=== PATIENT | female | born 1955 | race Caucasian/White ===

== ENCOUNTER → 2023-08-31 14:26 | Outpatient (REF) | payer MEDICARE, OTHER, SELFPAY | LOC: DHCBC MAIN 14:26 | PROVIDERS: ATTENDING PHYSICIAN Nurse Practitioner; FAMILY PHYSICIAN Nurse Practitioner Family | DX: I48.0 Paroxysmal atrial fibrillation (principal); R79.89 Other specified abnormal findings of blood chemistry; I95.89 Other hypotension; I10 Essential (primary) hypertension | CPT/HCPCS: 93306 ==

== ENCOUNTER → 2023-10-05 13:15 | Outpatient (REF) | payer MEDICARE, OTHER, SELFPAY | LOC: WDC 13:15 | PROVIDERS: ATTENDING PHYSICIAN Nurse Practitioner Family | DX: N64.4 Mastodynia (principal) | CPT/HCPCS: 76642; 77062; 77066 ==

== ENCOUNTER → 2023-11-28 08:04 | Outpatient (REF) | payer MEDICARE, OTHER, SELFPAY | LOC: RCS 08:04 | PROVIDERS: ATTENDING PHYSICIAN Nurse Practitioner; FAMILY PHYSICIAN Family Medicine | DX: I48.0 Paroxysmal atrial fibrillation (principal) | CPT/HCPCS: 93225; 93226 ==

== ENCOUNTER 2023-12-29 05:53 | Day surgery (SDC) | payer MEDICARE, OTHER, SELFPAY ==
[2023-12-07 10:55] LABS: % Basophils 0.6 % (0-2); % Eosinophils 4.1 % (0-6); % Immature Granulocytes 0.3 % (0-0.5); % Lymphocytes 30.6 % (20.5-51.1); % Neutrophils 58.4 % (42.2-75.2); Absolute Eosinophils 0.3 10^3/uL (0-0.7); Absolute Lymphocytes 2.2 10^3/uL (1.2-3.4); Absolute Monocytes 0.4 10^3/uL (0.1-0.6); Absolute Neutrophils 4.2 10^3/uL (1.4-6.5); Hematocrit 29.8 % (37.0-47.0); Hemoglobin 9.8 g/dL (12.0-16.0); Mean Corp Hgb Conc. 32.9 g/dL (33.0-37.0); Mean Corpuscular Hgb 29.3 pg (27.0-31.0); Mean Corpuscular Volume 89.2 fL (81.0-99.0); Mean Platelet Volume 11.3 fL (7.4-10.4); Nucleated Red Blood Cells % 0 %; Platelet Count 207 10^3/uL (130-400); Red Blood Cell Count 3.34 10^6/uL (4.20-5.40); White Blood Cell Count 7.1 10^3/uL (4.8-10.8)
[2023-12-07 11:51] LABS: ALT (SGPT) < 10 U/L (0-35); AST (SGOT) 19 U/L (14-36); Albumin 3.9 g/dl (3.5-5.0); Alkaline Phosphatase 88 U/L (38-126); Blood Urea Nitrogen 29 mg/dl (7-17); Calcium 9.8 mg/dl (8.4-10.2); Carbon Dioxide 21 mmol/L (22-30); Chloride 107 mmol/L (98-107); Glucose 98 mg/dl (70-99); Potassium 4.6 mmol/L (3.5-5.1); Sodium 139 mmol/L (135-145); Total Bilirubin 0.5 mg/dl (0.2-1.3); Total Protein 6.7 g/dl (6.3-8.2); eGFR 26.88
[2023-12-07 12:33] VITALS: BMI 34.8
[2023-12-29] VITALS (10 sets, daily range): BP systolic 130–155; BP diastolic 86–98; BMI 34.4
[2023-12-29 06:41] LABS: Glucose - Point of Care 96 mg/dl (70-99)
[2023-12-29 09:11] LABS: ACT-LR - POC 314 Seconds (116-155)
--- NOTE | 2023-12-29 09:45 | ITS.CL.ABL ---
Professor Of English - Ablation
Ablation
Procedure Report:
AFIB ablation:
Ms. Suráez is a very pleasant 68 yr old gentleman with medical history significant for symptomatic paroxysmal atrial fibrillation who is here in the EP lab for atrial fibrillation ablation
Date of Procedure:
12/29/2023
Indications:
Symptomatic atrial fibrillation
Pre-Operative Diagnosis:
Paroxysmal Atrial fibrillation
Post-Operative Diagnosis:
Paroxysmal Atrial fibrillation
Procedure Performed:
Atrial fibrillation ablation with wide area circumferential ablation (WACA) approach for pulmonary vein isolation
Performing Physician:
Valeriano Jasmine MD
Assistants:
EP staff
Anesthesia:
See anesthesia records
Detailed Description of the Procedure:
Written informed consent was obtained from the patient after a full explanation of the risks and benefits of the procedure including the risks of sedation and anesthesia.
The patient was brought to the electrophysiology laboratory in stable condition in fasting state. Continuous electrocardiographic and hemodynamic monitoring was initiated.
The initial rhythm was normal sinus rhythm.
The procedure site was meticulously prepared with surgical scrub and allowed to dry with no pooling. Sterile draping was applied to cover the procedure site. The image intensifier was draped with sterile bag and positioned over the patient. After
infusion of local anesthetic, vascular access was obtained under ultrasound guidance and sheaths were placed over guide wire as detailed below.
Sheath and Catheter Placement:
In the right femoral vein, an 8-Peruvian sheath was placed for use during the ablation procedure. A second 9-Fr sheath was placed for use during intracardiac echo procedure.
The sheaths were upgraded as needed during the case. Intracardiac catheters were positioned using direct fluoroscopic guidance.� ICE catheter was placed in RA. The following catheters / sheaths were placed
Sheaths:
��������������� Agilis sheath in right femoral vein upgraded from 8Fr in right femoral vein
��������������� 9Fr in right femoral vein
Catheters:
������������� [employer] Power Thermacool STSF bidirectional (D/F) - at locations of HRA, RV, LA and LV.
������������� Pentaray catheter � at locations of RA and LA
������������� ICE catheter - at locations of RA, SVC, and RV.
Intracardiac ECHO:
An 8-Peruvian AcuNav intracardiac ECHO (ICE) probe was advanced through the 9-Peruvian sheath in the femoral vein into the right atrium under fluoroscopic and ICE ultrasound image guidance and a baseline ECHO study was performed. The left atrial size
was normal. There was trace tricuspid regurgitation. The aortic valve was grossly normal. There was normal left ventricular size and function. There was a trace pericardial effusion. The REYES has normal velocities noted on Doppler. All the four veins
were identified and good flow noted.
During the procedure, ICE was used for monitoring of complications, guidance of trans-septal puncture, monitor the catheter position and tracking ablation lesions. No change in the pericardial space noted throughout the procedure.
Trans-septal Puncture:
Heparin was initiated and infused to maintain appropriate ACT.
A J-tipped guidewire was advanced through the 8-Peruvian sheath in the right femoral vein into the superior vena cava under fluoroscopic and ICE guidance. The 8-Peruvian sheath was exchanged for an Agilis sheath which was advanced into the superior vena
cava. A BRK needle was advanced until the tip was slightly behind the tip of the dilator inside the Agilis. The apparatus was withdrawn until it was in contact with the fossa ovalis. The position was adjusted based on fluoroscopy and ultrasound
images from ICE. Under fluoroscopic, hemodynamic and ICE ultrasound guidance, left atrium was cannulated by advancing the needle. Once atrial septum was cannulated, the needle was pulled back and a BMW guide wire was advanced through the needle into
the left atrium. The guide wire was advanced into the left superior pulmonary vein. Both the sheath and the dilator was advanced into the left atrium. The dilator with the needle was withdrawn. Blood was aspirated from the Agilis sheath and arterial
blood confirmed. The sheath was flushed. Saline injection noted into the left atrium on ICE. The pressure waveform was checked ad LA pressure measured. The penta-ray catheter was advanced in the Agilis sheath into the left pulmonary vein.
The 3-D mapping was done and then the penta-ray was switched to ablation catheter and back to penta-ray as needed.
3D Electroanatomic Mapping:
Using the Pentaray catheter advanced through Agilis sheath into the left atrium, an electroanatomic map (EAM) of the left atrium was created using [employer] Carto mapping system. The map was used for localization of catheter position and
tacking of ablation lesions. The EAM of the left atrium showed 4 pulmonary veins with all four electrically connected to the body the LA. It showed no significant scar on the posterior wall of the LA. The LA was normal in size.
Following the EAM, preparations were made for ablation.
Phrenic nerve stimulation attempt:
The right sided pulmonary veins were identified and the anterior antrum and the deep anterior locations of the PVs were check with high output stimulation that showed no phrenic nerve capture in any of the potential ablation areas. The whole of the
anterior wall was mapped and the deep veins were also tested and once no sign of phrenic capture noted, a design line was created through the areas of tested antral myocardium for ablation lesions.
Ablation:
Pulmonary vein Isolation:
Radiofrequency ablation was performed using an open irrigation, force-sensing 3.5mm radiofrequency ablation catheter (ThermocoSUPR STSF) by completing the circumferential lesions around the left and right pulmonary veins achieving pulmonary vein
isolation.
All the ablation lesions were guided by the [employer] SURPOINT module with the posterior lesions were limited to 45 mclaughlin for SURPOINT lesion index goal of 400 and anterior wall lesions were limited to SURPOINT index goal of 450.
The esophagus was noted to be on the left side of the LA near the PV antra based on the locations of the esophageal temperature probe. Ablation was stopped for any temperature increase of 0.1 degree C. Max esophageal temperature was 38.0� (baseline
36.4)
Esophagus retraction:
The esophagus was noted to be near the lesions line on the left side on the PV antra and was deviated to right using Eso-Sure and back to left when ablating the right sides. The Eso-Sure was removed at the end of the case.
EP study / Confirmation of the PVI and bidirectional block:
Following achievement of entrance block at the pulmonary veins, pacing from the pentaray catheter in each of the four veins at 10 milliamps for 2 milliseconds showed entrance and exit block. All PVI were rechecked at the end of the case and remained
isolated with dissociated and local capture with pacing. Entrance and exit block were demonstrated in all veins.
The LA was mapped with Carto EAM in sinus rhythm confirming the line of block at the ablation lesions lines.
Sinus Node Function: The sinus node functions are within acceptable normal range.
The AV cris functions are deemed within normal range.
Arrhythmia Induction:
No sustained arrhythmia was induced at the end of the study.�
Procedure End
ICE study was done again that showed no epicardial accumulation. No complications noted.
Following the completion of the EP study, catheters were removed. Protamine 50 mg was given at the end of the procedure and ACT was checked repeatedly. The sheaths were removed and hemostasis achieved with �figure of 8 suture� and manual compression
after acceptable ACT is achieved.
Left atrial Pressure:
Pre-Procedure: Mean LA pressure was 8mmHg
Post-Procedure: Mean LA pressure was 11mmHg
Post-Procedure: Mean RA pressure was 8mmHg
Estimated Blood loss:
<10 cc
Specimens Removed:
None.
Implants / Devices:
None
Urine output:
None
Packs / Drains/ Tubes:
None
Instrument / Sponge Count Correct:
Yes
Complications of the Procedure:
None
Condition of Patient at Time of Transfer:
Hemodynamically stable with no neurological or vascular compromise.
Summary:
Successful atrial fibrillation ablation with circumferential bidirectional line of block at pulmonary vein antra (Pulmonary vein isolation)
[2023-12-29 10:47] LABS: Glucose - Point of Care 154 mg/dl (70-99)
[2023-12-29] MEDS: ZOFRAN 4 MG IV (10:50)
--- NOTE | 2023-12-29 15:09 | W.PN.UPDATE ---
Update Note
Progress Note Update
68 yo WF s/p PVI (same day) She feels good, no cp, sob, kyara diet, voiding, EKG SR, R fem site c/d/i. She will continue OAC Eliquis at 4pm tonight at home. She will continue metoprolol and PPI. Activity restrictions reviewed. She has f/u in 2 weeks
with [facility]. She is for dc home after 230p.
Ms. Suárez is a very pleasant 68 yr old gentleman with medical history significant for symptomatic paroxysmal atrial fibrillation who is here in the EP lab for atrial fibrillation ablation
12/29/2023
Procedure Performed:
Atrial fibrillation ablation with wide area circumferential ablation (WACA) approach for pulmonary vein isolation
[2023-12-29 15:10] LABS: ACT-LR - POC > 397 Seconds (116-155)
[2023-12-29 15:10] LABS: ACT-LR - POC > 397 Seconds (116-155)
== END 2023-12-29 14:35 | disposition home or self-care (01) ==
LOC: CATH 05:53
PROVIDERS: ATTENDING PHYSICIAN Internal Medicine Cardiovascular Disease; FAMILY PHYSICIAN Family Medicine
DX: I48.0 Paroxysmal atrial fibrillation (principal); Z88.5 Allergy status to narcotic agent; Z88.1 Allergy status to other antibiotic agents; Z79.01 Long term (current) use of anticoagulants
CPT/HCPCS: C1894; C1769; C1732; C1766; C1892; C1759; 36415; 76937; 80053; 82962; 85025; 85347; 86850; 86900; 86901; 93005; 93656

== ENCOUNTER → 2024-01-18 10:25 | Outpatient (REF) | payer MEDICARE, OTHER, SELFPAY | LOC: RCS 10:25 | PROVIDERS: ATTENDING PHYSICIAN Nurse Practitioner; FAMILY PHYSICIAN Family Medicine | DX: I48.0 Paroxysmal atrial fibrillation (principal); I31.39 Other pericardial effusion (noninflammatory); I25.10 Atherosclerotic heart disease of native coronary artery without angina pectoris | CPT/HCPCS: 93306 ==

== ENCOUNTER → 2024-01-25 11:55 | Outpatient (REF) | payer MEDICARE, OTHER, SELFPAY | LOC: RAD 11:55 | PROVIDERS: ATTENDING PHYSICIAN Nurse Practitioner; FAMILY PHYSICIAN Family Medicine; REFERRING PHYSICIAN Specialist | DX: I48.0 Paroxysmal atrial fibrillation (principal); I10 Essential (primary) hypertension; I25.10 Atherosclerotic heart disease of native coronary artery without angina pectoris; R05.1 Acute cough; R06.09 Other forms of dyspnea | CPT/HCPCS: 71046 ==

== ENCOUNTER → 2024-02-08 08:09 | Outpatient (REF) | payer MEDICARE, OTHER, SELFPAY | LOC: RAD 08:09 | PROVIDERS: ATTENDING PHYSICIAN Specialist; FAMILY PHYSICIAN Family Medicine; REFERRING PHYSICIAN Internal Medicine Cardiovascular Disease | DX: Z94.0 Kidney transplant status (principal) | CPT/HCPCS: 76776 ==